=== PATIENT | male | born 1995 | race Caucasian/White ===

== ENCOUNTER 2017-12-14 02:29 | Emergency (ER) | payer OTHER ==
[2017-12-14] MEDS: DERMABOND TOPICAL SKIN ADHESIVE TOP (05:45)
== END 2017-12-14 05:57 | disposition home or self-care (01) ==
LOC: M ED 02:29
DX: S01.81XA Laceration without foreign body of other part of head, initial encounter (principal); S30.810A Abrasion of lower back and pelvis, initial encounter; W25.XXXA Contact with sharp glass, initial encounter; Y92.89 Other specified places as the place of occurrence of the external cause
CPT/HCPCS: 12011

== ENCOUNTER 2018-10-07 09:12 | Emergency (ER) | payer OTHER ==
[~2018-10-07] VITALS: Ht 180.3 cm; Wt 104.5 kg
[~2018-10-07 09:12] MED LIST: AUGM875T28 PO
[2018-10-07] MEDS ORDERED: NS 1,000 ML IV ONE (09:45)
[2018-10-07] MEDS ORDERED: KETOROLAC 30 MG/ML VIAL (J1885) IV ONE (09:45)
[2018-10-07] MEDS ORDERED: MORPHINE 4 MG/ML 1ML VIAL/SYRINGE (J2270) IV PRN (09:45)
[2018-10-07] MEDS ORDERED: ONDANSETRON 4MG/2ML VIAL (J2405) IV ONE (09:45)
[2018-10-07 10:26] LABS: BASO % 0.3 % (0.0-1.0); EOS # 0.2 10^3/uL (0.0-0.50); EOS % 1.3 % (0.0-3.0); HEMATOCRIT 43.1 % (42.0-52.0); HEMOGLOBIN 14.6 g/dl (13.5-17.5); LYMPH # 1.1 10^3/uL (1.5-6.5); LYMPH % 9.1 % (24.0-44.0); MEAN CORPUSCULAR HEMOGLOBIN 28.9 pg (27.0-33.0); MEAN CORPUSCULAR HGB CONC 33.9 g/dl (32.0-36.5); MEAN CORPUSCULAR VOLUME 85.2 fl (80.0-96.0); MONO % 8.5 % (0.0-5.0); NEUTROPHILS # 9.4 10^3/uL (1.8-7.7); NEUTROPHILS % 80.5 % (36.0-66.0); PLATELET COUNT, AUTOMATED 211 10^3/uL (150-450); RED BLOOD COUNT 5.06 10^6/uL (4.30-6.10); WHITE BLOOD COUNT 11.6 10^3/uL (4.0-10.0)
[2018-10-07 10:44] LABS: BLOOD UREA NITROGEN 15 MG/DL (7-18); C REACTIVE PROTEIN QUANTITATIV 8.98 MG/DL (0.00-0.30); CALCIUM LEVEL 9.5 MG/DL (8.5-10.1); CARBON DIOXIDE LEVEL 29 MEQ/L (21-32); CHLORIDE LEVEL 102 MEQ/L (98-107); CREATININE FOR GFR 0.98 MG/DL (0.70-1.30); GLOMERULAR FILTRATION RATE > 60.0 (>60); GLUCOSE, FASTING 87 MG/DL (70-100); POTASSIUM SERUM 4.1 MEQ/L (3.5-5.1); SODIUM LEVEL 138 MEQ/L (136-145)
[2018-10-07 10:55] LABS: ERYTHROCYTE SEDIMENTATION RATE 21 mm/hr (0-15)
[2018-10-07 11:41] VITALS: BP 142/68
--- NOTE | 2018-10-07 11:52 | REP ---
SOFT TISSUE ULTRASOUND ANTERIOR ABDOMINAL WALL: Repeat study. HISTORY: Increased pain and swelling at umbilicus. Progressive symptoms. Comparison study October 02, 2018 showed a 1.6 cm fluid collection consistent with an abscess with a draining sinus. SONOGRAPHIC FINDINGS: On today's ultrasound images, the findings are quite similar. There is a hypoechoic fluid collection in the subcutaneous tissue periumbilical region measuring 1.4 x 1.4 x 1.3 cm today. It contains tiny echogenic foci that are probably small air bubbles. There is a tract to the overlying skin and there is surrounding edema in the subcutaneous fat. IMPRESSION: Findings quite similar to the prior study with a 1.4 x 1.3 x 1.4 cm fluid collection consistent with an abscess. A tract to the overlying skin is again seen. Surrounding edema is noted. Electronically Signed by Jong Grimm MD 10/07/2018 05:42 P
[2018-10-07] MEDS ORDERED: BACT800T5 PO (12:25)
--- NOTE | 2018-10-08 15:51 | ED PDOC ---
Post-Departure Follow-Up dr baldwin and [facility] Khai Gould MD Oct 08, 2018 15:51
== END 2018-10-07 12:38 | disposition home or self-care (01) ==
LOC: M ED 09:12
DX: L02.211 Cutaneous abscess of abdominal wall (principal); Z77.098 Contact with and (suspected) exposure to other hazardous, chiefly nonmedicinal, chemicals
CPT/HCPCS: 76705; 80048; 83605; 85025; 85652; 86140; 87040; 96374; 96375; 99284; J1885; J2405

== ENCOUNTER → 2018-10-08 | Outpatient (REF) | payer OTHER ==
[~2018-10-08] MED LIST changes: +BACT800T5 PO
== END ==
LOC: M LAB REF 16:22
PROVIDERS: ATTEND Nurse Practitioner Family
DX: L08.9 Local infection of the skin and subcutaneous tissue, unspecified (principal)